=== PATIENT | male | born 1995 | race Caucasian/White ===

== ENCOUNTER 2018-10-28 18:24 | Emergency (ER) | payer OTHER ==
[~2018-10-28] VITALS: Ht 180.3 cm; Wt 91.6 kg
[2018-10-28 18:33] VITALS: Ht 180.3 cm; Wt 91.6 kg
[2018-10-28 21:01] VITALS: BP 142/99
== END 2018-10-28 21:01 | disposition home or self-care (01) ==
LOC: ED 18:24
DX: K60.2 Anal fissure, unspecified (principal)